=== PATIENT | male | born 1965 | race Caucasian/White ===

== ENCOUNTER 2017-07-26 13:07 | Emergency (ER) | payer OTHER ==
--- NOTE | ~2017-07-26 | CR21 ---
[facility] A Service of [facility] & [facility] RADIOLOGY TEXT RESULTS PATIENT: BRAYDEN JAVIER LOCATION: [place] : 63 UNIT #: [id number] AGE: [address]: Nikki Islas APRN SEX: M ORDER DR: [id number] [facility] [address] [place], [place] [address] [id number] E MR#: [id number] Acc #: [id number] NAME: BRAYDEN JAVIER. : 1965 SEX: M STUDY DATE/TIME: 07/26/2017 14:04 UNIT: [facility] ROOM: STUDY DESCRIPTION: CR Ankle Min 3 Views Rt Attending Physician: Nikki Islas A.P.R.N. Ordering Physician: Jesse Marquez M.D. Primary Care Physician: Dusty Rouse M.D. MEDICAL IMAGING REPORT This report is preliminary unless electronic signature is present EXAM Right ankle, 07/26. INDICATIONS Pain in the Achilles area with swelling for 1 week after metal lid fell on the back of the ankle. FINDINGS Three views of the right ankle were obtained. No comparison. No fracture or malalignment is seen. The mortise is intact. There is soft tissue prominence at the level of the Achilles insertion on the calcaneus. This would be better assessed with an MRI if needed. IMPRESSION The bones are within normal limits. There is some swelling at the Achilles insertion on the calcaneus. This is nonspecific and would be better assessed with non-emergent MRI if indicated. Dictated by... Catracho Davidson Jr., M.D. THIS IS AN ELECTRONICALLY VERIFIED REPORT aCtracho Davidson Jr., M.D. at 07/26/2017 10:33 PM KANDICE/mara TD: 07/26/2017 15:32 JOB #: [id number] MEDICAL IMAGING REPORT Page 1 of 1 COPY
[~2017-07-26 13:07] MED LIST: ACETAMINOPHEN PO; LISINOPRIL10 MG PO; MAXIMUM DAILY1 EACH PO; PREDNISONE1 MG PO; PROVENTIL17 GM IH; VOLTAREN50 MG PO; ZITHROMAX PO
[2017-07-26] MEDS ORDERED: NORVASC PO (15:01)
== END 2017-07-26 15:40 | disposition home or self-care (01) ==
LOC: CFTX 13:07 → CED 13:07 → CFTX 13:56
DX: M77.51 Other enthesopathy of right foot and ankle (principal); F15.10 Other stimulant abuse, uncomplicated; Z91.14 Patient's other noncompliance with medication regimen; I10 Essential (primary) hypertension; Z79.899 Other long term (current) drug therapy
CPT/HCPCS: 29540; 73610; 99283